=== PATIENT | male | born 1985 | race Caucasian/White ===

== ENCOUNTER 2020-08-24 17:28 | Emergency (ER) | payer SELFPAY ==
[2020-08-24 18:32] VITALS: BP 150/98; PULSE 88; RESP 16; TEMP 36.3; O2SAT 96; BMI 37.3
--- NOTE | 2020-08-24 21:09 | XRR_ITS ---
PROCEDURE INFORMATION: Exam: XR Right Hip Exam date and time: 08/24/2020 9:09 PM Age: 35 years old Clinical indication: Hip pain; Right hip TECHNIQUE: Imaging protocol: XR Right hip. Views: 1 view hip with pelvis when performed. COMPARISON: No relevant prior studies available. FINDINGS: Bones/joints: Benign bone island in the left pubic symphysis. The bones are intact and in normal alignment. Soft tissues: Unremarkable. XR/XR hip RT 2-3V wo/w pel* [id number] IMPRESSION: No acute findings
--- NOTE | 2020-08-24 21:11 | W.ED.EXTPRO ---
HPI - Extremity Problem General: Chief complaint: Extremity Injury, Lower Stated complaint: right hip pain Time Seen by Provider: 08/24/20 21:04 Source: patient Mode of arrival: ambulatory Limitations: no limitations History of Present Illness: HPI Narrative: 35-year-old male has been having right hip and right lower back pain over the last 8 weeks. States he is also on steroids over a month ago did help the pain some but he states it is worsened. He has been taking muscle lax with no relief. pain is sharp in nature and radiates down the back of his thigh. pain is currently a 6 out of 10. He states he felt like he needs referral to a spine surgeon. He is able ambulate without any problems. Denies any bowel or bladder incontinence. Denies any fevers or injuries. MD Complaint: extremity pain Associated symptoms: Deny chest pain, fever(s) or rash Review of Systems Const: Denies: fever(s), chills, body aches or change in appetite Eyes: Denies: blurry vision or eye discomfort ENMT: Denies: throat pain or dental pain Card: Denies: chest pain Resp: Denies: dyspnea GI: Denies: abdominal pain, nausea, vomiting or diarrhea : Denies: dysuria Musc: Reports: back pain and joint pain; Denies: neck pain Skin/Breast: Denies: rash Neuro: Denies: headache(s) Psych: Denies: depression Pelon/Lymph: Denies: easy bruising All/Imm: Denies: urticaria PFSH ED PFSH: Social History (Updated 08/24/20 @ 18:38 by Rangel Valenzuela RN) Smoking and tobacco status: current every day smoker cigarettes Packs smoked per day: 0.5 Alcohol intake: never Physical Exam Const: COMMON NORMALS: no acute distress, patient oriented x3 and healthy appearing HENMT: COMMON NORMALS: normocephalic and atraumatic HEAD & SCALP: normocephalic and atraumatic Eye: COMMON NORMALS: Equal, round and reactive pupils present and EOMs intact bilaterally PUPIL: Yes Equal, round and reactive pupils present Neck/C-Spine: COMMON NORMALS: full ROM and supple Chest: COMMONS NORMALS: normal inspection of the chest and normal palpation of entire chest wall Resp: COMMON NORMALS: normal respiratory effort, No retractions, No use of accessory muscles and clear to auscultation bilaterally AUSCULTATION: clear to auscultation bilaterally Cardio: COMMON NORMALS: regular rate, regular rhythm and No murmurs present (Cardio) RATE: regular rate RHYTHM: regular rhythm GI: COMMON NORMALS: Normal to inspection, nondistended, normoactive bowel sounds present, Soft to palpation, non-tender and no masses PALPATION: Yes Soft to palpation Extremity: COMMON NORMALS: normal to inspection and full ROM Neuro: COMMON NORMALS: patient oriented x3, moves all extremities and no focal motor deficits Psych: COMMON NORMALS: mental status grossly normal, Normal thought process present and cooperative THOUGHT PROCESS: Normal thought process present Skin: COMMON NORMALS: no rashes or lesions noted and no wounds GENERAL SKIN EXAM: no rashes or lesions noted Course Vital Signs: Vital signs: Vital Signs Temperature 97.3 F L 08/24/20 18:32 Pulse Rate 88 08/24/20 18:32 Respiratory Rate 16 08/24/20 18:32 Blood Pressure 150/98 08/24/20 18:32 Pulse Oximetry 96 08/24/20 18:32 MDM - Extremity (Nontraumatic) MDM Narrative: Medical decision making narrative: Patient presents here with back pain with sciatica. He had a previous x-ray of his L-spine is normal and his hip here is normal as well. He has no signs of cord compression or epidural abscess. We will have him follow-up with Dr. Herrmann to return if worsening. He understands agrees to plan. Imaging Data^: xr r hip: Attestation: I personally reviewed and interpreted this imaging study as follows: My impression: no acute abnormality Discharge Plan Discharge Patient Disposition: Home Clinical Impression: Low back pain Qualifiers: Chronicity: acute Back pain laterality: right Sciatica presence: with sciatica Sciatica laterality: sciatica of right side Qualified Code(s): M54.41 - Lumbago with sciatica, right side Condition: Stable Prescriptions: New Naprosyn 500 mg tablet 500 mg PO BID PRN (Reason: pain) Qty: 20 RF: 0 Discharge Orders: Discharge ED (Routine); Ordered 08/24/20 Ordered By: Odalis Kelley Referrals: Asa Herrmann DO [Physician] - Discharge Diet: Advance as tolerated Discharge Activity: Resume usual activity Patient Instructions: Sciatica (ED) Coding Level of Care Code ED Visual Display Associate for Chg Fwd Exam Comprehensive
[2020-08-24 21:58] VITALS: RESP 18; O2SAT 98
[2020-08-24] MEDS: dexamethasone 10 mg/mL INJ IM (21:58)
[2020-08-24] MEDS: morphine 4 mg/mL SDV 1 mL IM (21:58)
[2020-08-24 22:02] VITALS: BP 154/120; PULSE 89; RESP 18; O2SAT 98
[2020-08-24 22:22] VITALS: BP 140/95; PULSE 76; RESP 18; O2SAT 99
--- NOTE | 2020-08-26 08:37 | DCPLANNER ---
banking center manager had message to schedule a followup appointment for patient with ortho for hip pain. banking center manager called the ortho clinic, spoke with Qi, gave clinic patients information. banking center manager was told that patients information would be printed and reviewed. Clinic will call patient with appointment information.
--- NOTE | 2020-09-01 11:55 | DCPLANNER ---
investigation manager called the ortho clinic, spoke with Qi, to confirm if a follow up appointment had been scheduled for patient. investigation manager was told that clinic was unable to reach patient. investigation manager was unable to reach patient at this time.
== END 2020-08-24 22:23 | disposition home or self-care (01) ==
PROVIDERS: Emergency Provider Emergency Medicine
DX: M54.41 Lumbago with sciatica, right side (principal); F17.210 Nicotine dependence, cigarettes, uncomplicated
CPT/HCPCS: 73502; 96372; 99283; J1100; J2270

== ENCOUNTER → 2020-09-06 08:44 | Outpatient (BNVA) | payer SELFPAY | PROVIDERS: Referring Provider Emergency Medicine; Visit Provider Orthopaedic Surgery | DX: M54.9 Dorsalgia, unspecified (principal); M51.16 Intervertebral disc disorders with radiculopathy, lumbar region | CPT/HCPCS: 72110 ==

== ENCOUNTER 2020-09-14 17:19 | Outpatient (CLI) | payer SELFPAY ==
--- NOTE | 2020-09-14 17:30 | MR_ITS ---
WS: [id number] MRI LUMBAR SPINE NONCONTRAST HISTORY: M54.9 - Dorsalgia, unspecified COMPARISON: Lumbar spine radiographs 09/06/2020 TECHNIQUE: Sagittal and axial multisequence imaging is submitted. 5 nonrib-bearing vertebral bodies were noted on the lumbar spine radiograph series. This numbering pa ttern will be utilized for the MRI. There may only be 11 thoracic vertebral bodies. Lumbar lordosis demonstrates mild straightening. L5 retrolisthesis by 2 mm. Mild disc desiccation at L4-5 and L5-S1. No lumbar spine fracture. No marrow edema. Conus terminates normally at L1. L1-L2: Normal. L2-L3: Normal. L3-L4: Very mild ligamentum flavum hypertrophy. No stenosis. L4-L5: Mild annular disc bulging with a central moderate disc protrusion. Disc protrusion contacts th e L5 nerve roots bilaterally. Mild facet joint arthritis and ligamentum flavum hypertrophy. Very mild bilateral foraminal narrowing, LEFT greater than RIGHT. Small amount of fluid in the facet joints. L5-S1: Diffuse annular disc bulging and osteophytic ridging. Moderate to large central and RIGHT para central disc protrusion extends into the RIGHT lateral recess. There is significant contact and displ acement on the RIGHT S1 nerve root. Disc protrusion extends into the RIGHT subarticular recess and is slightly extruded caudad to the disc level. Mild bilateral foraminal stenosis. MR/MR lumbar spine wo con* [id number] IMPRESSION: 1. Moderate to large RIGHT paracentral disc protrusion extends into the latera l recess and subarticular with significant contact and displacement of the RIGH T S1 nerve root. 2. Moderate central disc protrusion at L4-5 contacting but not displacing the L5 nerve roots. 3. Mild bilateral foraminal narrowing at L4-5 and L5-S1.
== END 2020-09-14 17:20 | disposition home or self-care (01) ==
LOC: RADSHAW 17:24
PROVIDERS: Visit Provider Orthopaedic Surgery
DX: M51.26 Other intervertebral disc displacement, lumbar region (principal)
CPT/HCPCS: 72148

== ENCOUNTER → 2020-11-28 10:06 | Outpatient (BNVA) | payer OTHER, SELFPAY | PROVIDERS: Visit Provider Anesthesiology Pain Medicine | DX: M48.062 Spinal stenosis, lumbar region with neurogenic claudication (principal); M79.604 Pain in right leg; F17.210 Nicotine dependence, cigarettes, uncomplicated; Z79.891 Long term (current) use of opiate analgesic | CPT/HCPCS: 99204 ==

== ENCOUNTER → 2020-12-14 14:18 | Outpatient (BNVA) | payer OTHER, SELFPAY | PROVIDERS: Visit Provider Anesthesiology Pain Medicine | DX: M54.16 Radiculopathy, lumbar region (principal); Z79.891 Long term (current) use of opiate analgesic | CPT/HCPCS: 64483; 64484; J1100; J3490 ==

== ENCOUNTER → 2020-12-28 10:08 | Outpatient (BNVA) | payer OTHER, SELFPAY | PROVIDERS: Visit Provider Anesthesiology Pain Medicine | DX: M79.604 Pain in right leg (principal); M48.062 Spinal stenosis, lumbar region with neurogenic claudication; M47.816 Spondylosis without myelopathy or radiculopathy, lumbar region; M51.16 Intervertebral disc disorders with radiculopathy, lumbar region; Z79.891 Long term (current) use of opiate analgesic | CPT/HCPCS: 99213 ==